=== PATIENT | male | born 1970 | race Caucasian/White ===

== ENCOUNTER 2016-11-14 22:38 | Emergency (ER) | payer MEDICAID ==
[~2016-11-14] VITALS: Ht 182.9 cm; Wt 93.0 kg
[2016-11-14] MEDS ORDERED: ZOLOFT25 MG ORAL (22:48)
[2016-11-14] MEDS ORDERED: RISPERDAL0.25 MG ORAL (22:48)
[2016-11-14] MEDS ORDERED: BACTRIM DS TAB1 EAC1 ORAL (23:51)
--- NOTE | 2016-11-14 23:51 | Emergency Room Report ---
History of Present Illness General Chief Complaint: Skin Rash/Abscess Source: Patient Present Illness HPI Is a 46-year-old male with no significant past medical history. He presents with a bump and redness to the left lower extremity. He said there is a mass there is been there for a long time. Today to get red and painful. Denies any fever chills denies any trauma. Has not take anything for it. Allergies: Coded Allergies: No Known Allergies (Unverified , 11/14/16) Patient History Past Medical History: see triage record, old chart reviewed, psych hx Past Surgical History: other Pertinent Family History: none Social History: Denies: smoking Immunizations: other Reviewed Nursing Documentation: PMH: Agreed, PSxH: Agreed Review of Systems Eye: Denies: blurred vision, eye pain ENT: Denies: ear pain, nose congestion, throat swelling Respiratory: Denies: cough, shortness of breath Cardiovascular: Denies: chest pain, palpitations Gastrointestinal: Denies: abdominal pain, diarrhea, nausea, vomiting Musculoskeletal: Denies: back pain, joint pain Skin: Denies: rash Neurological: Denies: headache, numbness Endocrine: Denies: increased thirst, increased urine Hematologic/Lymphatic: Denies: easy bruising All Other Systems: negative except mentioned in HPI Physical Exam Vital Signs Date Time Temp Pulse Resp B/P Pulse Ox O2 Delivery O2 Flow Rate FiO2 11/14/16 22:44 97.9 63 18 128/81 97 Room Air vitals normal. Sp02 EP Interpretation: reviewed, normal General Appearance: well appearing, no apparent distress, alert Head: normocephalic, atraumatic Eyes: bilateral eye EOMI, bilateral eye PERRL ENT: hearing grossly normal, normal pharynx Neck: full range of motion, supple, no meningismus Respiratory: chest non-tender, lungs clear, normal breath sounds Cardiovascular #1: regular rate, rhythm, no murmur Gastrointestinal: normal bowel sounds, non tender, no mass, no organomegaly, no bruit, non-distended Musculoskeletal: back normal, gait/station normal, normal range of motion, other - left leg distally: 1cm indurated erythematous area. No crepitus Psychiatric: mood/affect normal Skin: warm/dry Procedures Incision and Drainage Incision and Drainage : Consent: Verbal Site: left leg Blade Size: 11 I & D Procedure: betadine prep Wound Location: lower extremity Anesthesia: 1% Lidocaine Volume Anesthetic (ccs): 1 Patient Tolerated: Well Complications: None Progress I made a 1cm incision and expressed out sebaceous cyst. Pt tolerated procedure w /o problem Medical Decision Making Diagnostic Impression: Primary Impression: Infected sebaceous cyst of skin ER Course She presents with a small sebaceous cyst of his lower extremity. Now infected. I was able to evacuate the cyst. We'll put on antibiotics. No evidence of neoplastic process or foreign body. No evidence of necrotizing fasciitis. Last Vital Signs Date Time Temp Pulse Resp B/P Pulse Ox O2 Delivery O2 Flow Rate FiO2 11/14/16 22:44 97.9 63 18 128/81 97 Room Air Status: improved Disposition: HOME, SELF-CARE Condition: Stable Scripts Trimethoprim/Sulfamethoxazole 160/800* (BACTRIM DS TABLET*) 1 Each Tablet 1 TAB ORAL Q12H, #14 TAB 0 Refills Prov: SHILA CATES M.D. 11/14/16 Referrals: [facility],REFERRING (PCP) Additional Instructions: Follow up with your doctor in 7 days. Return if worse. SHILA CATES M.D. Nov 14, 2016 23:51
[2016-11-14 23:59] VITALS: BP 128/81
== END 2016-11-14 23:59 | disposition home or self-care (01) ==
LOC: EMR 23:00
DX: L72.3 Sebaceous cyst (principal)
CPT/HCPCS: 10060

== ENCOUNTER 2017-06-16 16:33 | Emergency (ER) | payer MEDICAID ==
[~2017-06-16] VITALS: Ht 200.7 cm; Wt 93.4 kg
[~2017-06-16 16:33] MED LIST: BACTRIM DS TAB1 EAC1 ORAL; RISPERDAL0.25 MG ORAL; ZOLOFT25 MG ORAL
--- NOTE | 2017-06-16 17:32 | Emergency Room Report ---
History of Present Illness General Chief Complaint: General Complaint Source: Patient Present Illness HPI 47-year-old male presents to the emergency department complaining of localized pain which is one out of 10 in severity to the second toe of the left foot x2 days. Patient states symptoms are progressive patient denies trauma or fall. Patient reports some erythema and tenderness to palpation. Patient states the pain is exacerbated upon weightbearing and walking. Patient denies previous injury the extremities, denies increase in temperature to palpation, past medical history. Denies fevers, chills, N/V. Patient denies bleeding or open wounds. Denies CP, Palpitations, LOC, AMS, dizziness, Changes in Vision, Sensation, paresthesias, or a sudden severe headache. Allergies: Coded Allergies: No Known Allergies (Unverified , 11/14/16) Patient History Past Medical History: see triage record Past Surgical History: none Pertinent Family History: none Immunizations: UTD Reviewed Nursing Documentation: PMH: Agreed, PSxH: Agreed Nursing Documentation-PMH Past Medical History: No History, Except For History Of Psychiatric Problem: Yes Review of Systems All Other Systems: negative except mentioned in HPI Physical Exam Vital Signs Date Time Temp Pulse Resp B/P (MAP) Pulse Ox O2 Delivery O2 Flow Rate FiO2 06/16/17 17:06 76 14 104/68 97 Room Air Sp02 EP Interpretation: reviewed, normal General Appearance: no apparent distress, alert, GCS 15, non-toxic Head: normocephalic, atraumatic Eyes: bilateral eye normal inspection, bilateral eye PERRL ENT: hearing grossly normal, normal voice Neck: full range of motion Respiratory: lungs clear, normal breath sounds, speaking full sentences Cardiovascular #1: regular rate, rhythm, no edema Cardiovascular #2: 2+ dorsalis pedis (L) Musculoskeletal: back normal, gait/station normal, normal range of motion, non- tender Neurologic: alert, oriented x3, responsive, motor strength/tone normal, sensory intact, normal gait, speech normal Psychiatric: judgement/insight normal, memory normal, mood/affect normal Skin: normal color, no rash, warm/dry, well hydrated, other - 0.3cm non- thermal blister to plantar aspect of the 2nd Toe of the Left foot, not suspicious for drug eruption or secondary infection, no purulent d/c, negative niklosky sign, no increased temperature to palpation. Lymphatic: no adenopathy Medical Decision Making PA Attestation Dr. bonilla is my supervising Physician whom patient management has been discussed with. Diagnostic Impression: Primary Impression: Blister (nonthermal), right lesser toe(s), initial encounter ER Course 47-year-old male presents to the emergency department complaining of localized pain which is one out of 10 in severity to the second toe of the left foot x2 days. Patient states symptoms are progressive patient denies trauma or fall. Patient reports some erythema and tenderness to palpation. Patient states the pain is exacerbated upon weightbearing and walking. Patient denies previous injury the extremities, denies increase in temperature to palpation, past medical history. Denies fevers, chills, N/V. Patient denies bleeding or open wounds. Denies CP, Palpitations, LOC, AMS, dizziness, Changes in Vision, Sensation, paresthesias, or a sudden severe headache. Ddx considered but are not limited to cellulitis, scabies, shingles, varicella, dermatitis, urticaria, eczema, tinea, viral exanthem, SJS, friction blister Vital signs: are WNL, pt. is afebrile H&PE are most consistent with 0.3cm non-thermal blister to plantar aspect of the 2nd Toe of the Left foot, not suspicious for drug eruption or secondary infection, no purulent d/c, negative niklosky sign, no increased temperature to palpation. Most likely secondary to friction/ repetitive trauma from walking and wearing tight fitting shoes. ORDERS: none required at this time, the diagnosis is clinical ED INTERVENTIONS: None required at this time. -d/w pt. blister conservative care, d/w pt. proper follow up with PMD. gave ED return precautions. DISCHARGE: At this time pt. is stable for d/c to home. Will provide printed patient care instructions, and any necessary prescriptions. Care plan and follow up instructions have been discussed with the patient prior to discharge. Last Vital Signs Date Time Temp Pulse Resp B/P (MAP) Pulse Ox O2 Delivery O2 Flow Rate FiO2 06/16/17 17:06 76 14 104/68 97 Room Air Disposition: HOME, SELF-CARE Condition: Stable Scripts Acetaminophen* (TYLENOL EXTRA STRENGTH*) 500 Mg Tablet 500 MG ORAL Q6H, #20 TAB 0 Refills Prov: Marcela Adan P.Danica 06/16/17 Patient Instructions: Blisters Additional Instructions: Take medications as directed. Follow up with a Primary Care Provider in 3-5 days, even if your symptoms have resolved. --Please review list of primary care clinics, if you do not already have a primary care provider Return sooner to ED if new symptoms occur, or current symptoms become worse. - Please note that this Emergency Department Report was dictated using [employer] and benefits clerk technology software, occasionally this can lead to erroneous entry secondary to interpretation by the dictation equipment. Marcela Adan Jun 16, 2017 17:32
[2017-06-16] MEDS ORDERED: TYLENOL EXTRA500 MG ORAL (17:33)
[2017-06-16 17:55] VITALS: BP 109/56
== END 2017-06-16 17:45 | disposition home or self-care (01) ==
LOC: EMR 17:40
DX: S90.425A Blister (nonthermal), left lesser toe(s), initial encounter (principal); X58.XXXA Exposure to other specified factors, initial encounter
CPT/HCPCS: 99284

== ENCOUNTER 2017-09-29 14:35 | Emergency (ER) | payer MEDICAID ==
[~2017-09-29] VITALS: Ht 182.9 cm; Wt 93.0 kg
[~2017-09-29 14:35] MED LIST changes: +TYLENOL EXTRA500 MG ORAL
[2017-09-29] MEDS ORDERED: ROBITUSSIN COU237 M1 PO (15:19)
[2017-09-29 15:25] VITALS: BP 110/67
--- NOTE | 2017-10-01 07:31 | Emergency Room Report ---
History of Present Illness General Chief Complaint: Flu Like Symptoms Source: Patient Present Illness HPI Patient presents with complaints of cough ongoing for the past several days Reports of the 7 days Denies any phlegm production patient does not feel short of breath denies any chest pain or shortness of breath Denies any vomiting denies any fevers denies any neck pain or photophobia Given the continued cough patient is concerned and presents for further eval Allergies: Coded Allergies: No Known Allergies (Unverified , 11/14/16) Patient History Past Medical History: see triage record Pertinent Family History: none Reviewed Nursing Documentation: PMH: Agreed, PSxH: Agreed Nursing Documentation-[facility] Past Medical History: No Stated History History Of Psychiatric Problem: Yes - ANXIETY Review of Systems All Other Systems: negative except mentioned in HPI Physical Exam Vital Signs Date Time Temp Pulse Resp B/P (MAP) Pulse Ox O2 Delivery O2 Flow Rate FiO2 09/29/17 14:39 97.9 71 20 110/67 97 Room Air Sp02 EP Interpretation: reviewed, normal General Appearance: well appearing, no apparent distress Head: normocephalic, atraumatic Eyes: bilateral eye PERRL, bilateral eye EOMI ENT: hearing grossly normal, normal pharynx, TMs + canals normal, uvula midline Neck: full range of motion, supple, no meningismus, no bony tend Respiratory: lungs clear, normal breath sounds, no rhonchi, no respiratory distress, no retraction, no accessory muscle use Cardiovascular #1: normal peripheral pulses, regular rate, rhythm, no edema, no gallop, no JVD, no murmur Gastrointestinal: normal bowel sounds, non tender, soft, no mass, no organomegaly, non-distended, no guarding, no hernia, no pulsatile mass, no rebound Musculoskeletal: normal inspection Neurologic: oriented x3, responsive, manager behavior III-XII nml as tested, motor strength/ tone normal, sensory intact Psychiatric: mood/affect normal Skin: normal color, no rash, warm/dry, palpation normal Lymphatic: normal inspection, no adenopathy Medical Decision Making Diagnostic Impression: Primary Impression: bronchitis ER Course Patient has findings in line with what appears to be viral bronchitis Lung sounds are appropriate Patient saturation and clinical exam is also at baseline levels at this time and the patient is stable for initial conservative outpatient trial Last Vital Signs Date Time Temp Pulse Resp B/P (MAP) Pulse Ox O2 Delivery O2 Flow Rate FiO2 09/29/17 15:25 97.9 71 20 110/67 97 Room Air Status: unchanged Disposition: HOME, SELF-CARE Condition: Stable Scripts Guaifenesin/Dextromethorphan (ROBITUSSIN COUGH-CHEST DM LIQ) 237 Ml Liquid 10 ML PO BID for 5 Days, ML Prov: TONY BAHENA D.O. 09/29/17 Referrals: [facility],REFERRING (PCP) Patient Instructions: Acute Bronchitis, [id number] Additional Instructions: Patient is provided with the discharge instructions notified to follow up with primary doctor in the next 2-3 days otherwise return to the er with any worsening symptoms. Please note that this report is being documented using [employer] technology. This can lead to erroneous entry secondary to incorrect interpretation by the dictating instrument. TONY BAHENA D.O. Oct 01, 2017 07:31
== END 2017-09-29 15:28 | disposition home or self-care (01) ==
LOC: EMR 14:55
DX: J40 Bronchitis, not specified as acute or chronic (principal); F41.9 Anxiety disorder, unspecified
CPT/HCPCS: 99283

== ENCOUNTER 2018-01-12 13:31 | Emergency (ER) | payer MEDICAID ==
[~2018-01-12] VITALS: Ht 182.9 cm; Wt 92.5 kg
[~2018-01-12 13:31] MED LIST changes: +ROBITUSSIN COU237 M1 PO
[2018-01-12 13:49] VITALS: BP 116/71
--- NOTE | 2018-01-12 14:06 | Emergency Room Report ---
History of Present Illness General Chief Complaint: Upper Respiratory Illness Source: Patient Present Illness HPI 47-year-old male presents to the emergency department complaining of persistent cough 2 weeks.Denies pain at this time Patient denies mucus production, fevers , chills or other upper respiratory symptoms. Denies sore throat, ear pain, high fevers, lethargy, neck pain/stiffness, irritability, photophobia dehydration, N/V/D. Denies Cp, Palpitations, LOC, AMS, seizures, paresthesias, or changes in Hearing or vision, no Sudden severe LAY. Denies history of asthma , COPD or smoking. Allergies: Coded Allergies: No Known Allergies (Unverified , 11/14/16) Patient History Past Medical History: see triage record Past Surgical History: none Pertinent Family History: none Reviewed Nursing Documentation: PMH: Agreed; PSxH: Agreed Nursing Documentation-PMH Past Medical History: No History, Except For History Of Psychiatric Problem: Yes Review of Systems All Other Systems: negative except mentioned in HPI Physical Exam Vital Signs Date Time Temp Pulse Resp B/P (MAP) Pulse Ox O2 Delivery O2 Flow Rate FiO2 01/12/18 13:36 98.3 81 16 116/71 93 Room Air 98.2 Sp02 EP Interpretation: reviewed, normal General Appearance: no apparent distress, alert, GCS 15, non-toxic Head: normocephalic, atraumatic Eyes: bilateral eye normal inspection, bilateral eye PERRL ENT: hearing grossly normal, normal pharynx, normal voice, TMs + canals normal , uvula midline, moist mucus membranes, other - moderate cerumen in the left ear canal. Neck: full range of motion, no meningismus Respiratory: chest non-tender, lungs clear, normal breath sounds, no respiratory distress, no wheezing, speaking full sentences Cardiovascular #1: regular rate, rhythm Musculoskeletal: back normal, gait/station normal, normal range of motion, non- tender Neurologic: alert, oriented x3, responsive, motor strength/tone normal, sensory intact, normal gait, speech normal, grossly normal Psychiatric: judgement/insight normal Skin: normal color, no rash, warm/dry, well hydrated Lymphatic: no adenopathy Medical Decision Making PA Attestation Dr. Petit is my supervising Physician whom patient management has been discussed with. Diagnostic Impression: Primary Impression: Upper respiratory infection, viral Additional Impressions: Cough Excess ear wax Qualified Codes: H61.22 - Impacted cerumen, left ear ER Course 47-year-old male presents to the emergency department complaining of persistent cough 2 weeks.Denies pain at this time Patient denies mucus production, fevers , chills or other upper respiratory symptoms. Denies sore throat, ear pain, high fevers, lethargy, neck pain/stiffness, irritability, photophobia dehydration, N/V/D. Denies Cp, Palpitations, LOC, AMS, seizures, paresthesias, or changes in Hearing or vision, no Sudden severe LAY. Denies history of asthma , COPD or smoking. Ddx considered but are not limited to: pharyngitis, strep, MANAGEMENT ACCOUNTANT, ludwigs angina, URI Vital signs: are WNL, pt. is afebrile H&PE are most consistent with: bronchitis/ URI most likely viral in etiology. no PE evidence to suggest PNA. -Pt. has moderate cerumen in the left ear canal. ORDERS: None required at this time as the diagnosis is clinical ED INTERVENTIONS: none required at this time. DISCHARGE: At this time pt. is stable for d/c to home. Will provide printed patient care instructions, and any necessary prescriptions. Care plan and follow up instructions have been discussed with the patient prior to discharge. Last Vital Signs Date Time Temp Pulse Resp B/P (MAP) Pulse Ox O2 Delivery O2 Flow Rate FiO2 01/12/18 13:49 98.2 81 16 116/71 93 Room Air 98.2 Disposition: HOME, SELF-CARE Condition: Stable Scripts Carbamide Peroxide (DEBROX) 15 Ml Drops 5 DROP BOTH EARS TWICE A DAY for 4 Days, #15 ML 0 Refills Prov: Marcela Adan P.A. 01/12/18 Codeine/Promethazine Hcl* (PROMETHAZINE-CODEINE SYRUP*) 118 Ml Syrup 5 ML ORAL Q6H PRN for For Cough, #120 ML 0 Refills Prov: Marcela Adan.Jarvis. 01/12/18 Patient Instructions: Upper Respiratory Infection, Adult Additional Instructions: Take medications as directed. Follow up with a Primary Care Provider in 3-5 days, even if your symptoms have resolved. --Please review list of primary care clinics, if you do not already have a primary care provider Return sooner to ED if new symptoms occur, or current symptoms become worse. Do not drink alcohol, drive, or operate heavy machinery while taking cough as this may cause drowsiness. - Please note that this Emergency Department Report was dictated using [employer] power technology software, occasionally this can lead to erroneous entry secondary to interpretation by the dictation equipment. Marcela Adan Jan 12, 2018 14:06
[2018-01-12] MEDS ORDERED: PROMETHAZINE-C118 M1 ORAL (14:07)
[2018-01-12] MEDS ORDERED: DEBROX15 M1 BOTH EARS (14:07)
[2018-01-12 14:21] VITALS: BP 116/71
== END 2018-01-12 14:28 | disposition home or self-care (01) ==
LOC: EMR 14:24
DX: J06.9 Acute upper respiratory infection, unspecified (principal); B34.9 Viral infection, unspecified; H61.22 Impacted cerumen, left ear
CPT/HCPCS: 99284

== ENCOUNTER 2018-09-15 22:43 | Emergency (ER) | payer MEDICAID ==
[~2018-09-15] VITALS: Ht 182.9 cm; Wt 86.2 kg
[~2018-09-15 22:43] MED LIST changes: +DEBROX15 M1 BOTH EARS; +PROMETHAZINE-C118 M1 ORAL
[2018-09-15] MEDS ORDERED: ABILIFY15 MG ORAL (22:58)
[2018-09-15] MEDS ORDERED: Bacitracin Oint UD TOPIC ONE (23:15)
[2018-09-15] MEDS ORDERED: BACITRACIN15 GM TOPIC (23:37)
[2018-09-16 00:46] VITALS: BP 141/80
--- NOTE | 2018-09-16 04:56 | Emergency Room Report ---
History of Present Illness General Chief Complaint: Pain Source: Patient Present Illness HPI 48-year-old male presents ED for evaluation. Patient complaining of pain to his left big toe. States there is a large black discoloration. Started about 2 days ago. Throbbing, 5 out of 10, nonradiating. Denies any injury. Denies any fevers or chills. Denies any discharge. No other aggravating relieving factors. Denies any other associated symptoms Allergies: Coded Allergies: No Known Allergies (Unverified , 11/14/16) Patient History Past Medical History: none Past Surgical History: none Pertinent Family History: none Social History: Denies: smoking, alcohol use, drug use Immunizations: UTD Reviewed Nursing Documentation: PMH: Agreed; PSxH: Agreed Nursing Documentation-PMH Past Medical History: No Stated History Review of Systems All Other Systems: negative except mentioned in HPI Physical Exam Vital Signs Date Time Temp Pulse Resp B/P (MAP) Pulse Ox O2 Delivery O2 Flow Rate FiO2 09/15/18 22:50 98.1 92 18 141/80 99 Room Air Sp02 EP Interpretation: reviewed, normal General Appearance: no apparent distress, alert, GCS 15, non-toxic Head: normocephalic Eyes: bilateral eye normal inspection, bilateral eye PERRL ENT: normal ENT inspection Neck: normal inspection Respiratory: normal inspection Cardiovascular #1: normal inspection Gastrointestinal: normal inspection Rectal: deferred Genitourinary: no CVA tenderness Musculoskeletal: back normal, gait/station normal, normal range of motion, non- tender Neurologic: alert, oriented x3, responsive, motor strength/tone normal, sensory intact, speech normal Psychiatric: judgement/insight normal, memory normal, mood/affect normal, no suicidal/homicidal ideation Skin: other - blister to L big toe. with fluid. no surrounding erythema/ induration. no discharge Lymphatic: normal inspection Medical Decision Making Diagnostic Impression: Primary Impression: Blister of foot Qualified Codes: S90.822A - Blister (nonthermal), left foot, initial encounter ER Course Hospital Course 48-year-old male presents to ED with pain/swelling to L big toe Differential diagnoses include: Cellulitis, dermatitis, insect bite, abscess Clinical course Patient placed on stretcher. After initial history, physical exam reveals a male in no acute distress. On exam there is a blister on the left big toe. Discolored. Tense with fluid. No surrounding erythema or induration. No discharge. Full range of motion to the toe Discussed findings with patient. Instructed not to pop the blister. recommend Localized wound care. Bacitracin and dressing applied here. I'll provide podiatry referrals Diagnosis - blister of foot stable and discharged to home with prescription for bacitracin. Instructed to followup with podiatry. Instructed return to ED if symptoms recur or worsen Last Vital Signs Date Time Temp Pulse Resp B/P (MAP) Pulse Ox O2 Delivery O2 Flow Rate FiO2 09/16/18 00:46 98.1 92 18 141/80 99 Room Air Status: improved Disposition: HOME, SELF-CARE Condition: Stable Scripts Bacitracin (Bacitracin) 28.4 Gm Oint...g. 1 APPLIC TOPIC THREE TIMES A DAY, #28.4 GM Prov: Aristides Sharma MD 09/15/18 Referrals: SILVINO BURROWS M.D., Farshid DPM Patient Instructions: Blisters Aristides Sharma MD Sep 16, 2018 04:56
== END 2018-09-15 23:45 | disposition home or self-care (01) ==
LOC: EMR 23:16
DX: S90.822A Blister (nonthermal), left foot, initial encounter (principal); X58.XXXA Exposure to other specified factors, initial encounter
CPT/HCPCS: 99282

== ENCOUNTER 2019-05-04 22:39 | Emergency (ER) | payer MEDICAID ==
[~2019-05-04] VITALS: Ht 182.9 cm; Wt 99.8 kg
[~2019-05-04 22:39] MED LIST changes: +ABILIFY15 MG ORAL; +BACITRACIN15 GM TOPIC
[2019-05-04 22:59] VITALS: BP 106/69
--- NOTE | 2019-05-04 23:00 | NUR ---
ED Nurse Note: pt walked in for med refill, pt reports he needs depakote 500mg, pt states he has lacey on 05/09 to see his doctor for prescription. will cont monitor.
[2019-05-04] MEDS ORDERED: DEPAKOTE500 MG PO (23:09)
[2019-05-04] MEDS ORDERED: Depakote 500mg tab ORAL ONE (23:15)
--- NOTE | 2019-05-04 23:27 | NUR ---
ER DISCHARGE NOTE: Patient is cleared to be discharged per ERMD, pt is aox4, on room air, with stable vital signs. pt was given dc and prescription instructions, pt was able to verbalize understanding, pt id band removed. pt is able to ambulate with steady gait. pt took all belongings.evert.
[2019-05-04 23:28] VITALS: BP 106/69
--- NOTE | 2019-05-05 00:33 | Emergency Room Report ---
History of Present Illness General Chief Complaint: Medication Refill Source: Patient Present Illness HPI 49-year-old male presents ED for evaluation. Here for medication refill and states that he takes Depakote for schizoaffective disorder and ran out yesterday. Takes 1000 mg twice a day. States he feels fine. Denies SI or HI. Denies hearing voices. States he has a PMD appointment next week. No other aggravating relieving factors. Denies any other associated symptoms Allergies: Coded Allergies: No Known Allergies (Unverified , 11/14/16) Patient History Past Medical History: psych hx Past Surgical History: none Pertinent Family History: none Social History: Denies: smoking, alcohol use, drug use Immunizations: UTD Reviewed Nursing Documentation: PMH: Agreed; PSxH: Agreed Nursing Documentation-PMH Past Medical History: No History, Except For History Of Psychiatric Problem: Yes - schizoaffective disorder Review of Systems All Other Systems: negative except mentioned in HPI Physical Exam Vital Signs Date Time Temp Pulse Resp B/P (MAP) Pulse Ox O2 Delivery O2 Flow Rate FiO2 05/04/19 22:54 99.0 71 18 106/69 (81) 94 Room Air Sp02 EP Interpretation: reviewed, normal General Appearance: no apparent distress, alert, GCS 15, non-toxic Head: normocephalic, atraumatic Eyes: bilateral eye normal inspection, bilateral eye PERRL ENT: hearing grossly normal, normal pharynx, no angioedema, normal voice Neck: full range of motion, supple/symm/no masses Respiratory: chest non-tender, lungs clear, normal breath sounds, speaking full sentences Cardiovascular #1: regular rate, rhythm, no edema Cardiovascular #2: 2+ carotid (R), 2+ carotid (L), 2+ radial (R), 2+ radial (L) , 2+ dorsalis pedis (R), 2+ dorsalis pedis (L) Gastrointestinal: normal bowel sounds, non tender, soft, non-distended, no guarding, no rebound Rectal: deferred Genitourinary: normal inspection, no CVA tenderness Musculoskeletal: back normal, gait/station normal, normal range of motion, non- tender Neurologic: alert, oriented x3, responsive, motor strength/tone normal, sensory intact, speech normal Psychiatric: judgement/insight normal, memory normal, mood/affect normal, no suicidal/homicidal ideation Reflexes: 3+ bicep (R), 3+ bicep (L), 3+ tricep (R), 3+ tricep (L), 3+ knee (R) , 3+ knee (L) Lymphatic: no adenopathy Medical Decision Making Diagnostic Impression: Primary Impression: Encounter for medication refill ER Course 49-year-old male presents to ED refill of his medication. History of schizoaffective- takes depakote hospital course: After initial history and physical, he produces pill bottle which documents depakote being prescribed. I will provide a one-week refill of his medication. Will provide his evening dose here in ED. Safe for discharge for close outpatient follow-up. States he has a PMD Diagnosis-encounter for medication refill Stable and discharged to home with prescription for Depakote. Followup with PMD. Return to ED if symptoms recur or worsen Last Vital Signs Date Time Temp Pulse Resp B/P (MAP) Pulse Ox O2 Delivery O2 Flow Rate FiO2 05/04/19 23:28 99.0 71 18 106/69 94 Room Air Status: improved Disposition: HOME, SELF-CARE Condition: Stable Scripts Divalproex Sodium (Depakote) 500 Mg Tablet.dr 1000 MG PO BID for 7 Days, TAB Prov: Aristides Sharma MD 05/04/19 Referrals: [facility],REFERRING (PCP) Delisa Mojica Comp. [facility] Patient Instructions: Medicine Refill at the Emergency Department Aristides Sharma MD May 05, 2019 00:33
== END 2019-05-04 23:30 | disposition home or self-care (01) ==
LOC: EMR 23:10
DX: F25.9 Schizoaffective disorder, unspecified (principal); Z76.0 Encounter for issue of repeat prescription
CPT/HCPCS: 99282

== ENCOUNTER 2019-06-18 22:14 | Emergency (ER) | payer MEDICAID ==
[~2019-06-18] VITALS: Ht 182.9 cm; Wt 97.5 kg
[~2019-06-18 22:14] MED LIST changes: +DEPAKOTE500 MG PO
[2019-06-18 22:32] VITALS: BP 101/64
[2019-06-18] MEDS ORDERED: DEPAKOTE500 MG PO (22:50)
--- NOTE | 2019-06-18 22:51 | Emergency Room Report ---
History of Present Illness General Chief Complaint: Medication Refill Source: Patient Present Illness HPI Disclaimer: Please note that this report is being documented using [employer] technology. This can lead to erroneous entry secondary to incorrect interpretation by the dictating instrument. HPI: This a 49-year-old male with a history of schizoaffective disorder presenting for medication refill. He states that he ran out of his Depakote which he takes 1000 mg twice a day. He has an appointment to see his PMD in 2 days but ran out of his medications this morning. He is requesting a short refill until he can see his PMD. Denies any other symptoms at this time. Denies SI/HI, hearing voices, headaches, vision changes, recent fevers, chest pain or any other symptoms at this time. PMH: Schizoaffective disorder Allergies: None Social Hx: Denies drug or alcohol use Allergies: Coded Allergies: No Known Allergies (Unverified , 11/14/16) Review of Systems All Other Systems: negative except mentioned in HPI Physical Exam Vital Signs Date Time Temp Pulse Resp B/P (MAP) Pulse Ox O2 Delivery O2 Flow Rate FiO2 06/18/19 22:26 98.2 72 16 101/64 (76) 96 Room Air General: Awake and alert, no acute distress HEENT: NC/AT. EOMI. Resp: Normal work of breathing. Skin: Intact. No abrasions, laceration or rash over the exposed skin MSK: Normal tone and bulk. Moving all extremities. No obvious deformity. Neuro: Awake and alert. Mentating appropriately. Calm and pleasant. Behaving appropriately. Denies SI/HI Medical Decision Making Diagnostic Impression: Primary Impression: Encounter for medication refill ER Course 49-year-old male presents to the emergency department requesting medication refill of his Depakote for which he takes for schizoaffective disorder. He ran out this morning and is otherwise not missed any doses. We will give him a night dose in the emergency department and prescribed in 1 week of medication until he can see his PMD. He is otherwise well-appearing, no acute distress, no other complaints noted. Will discharge home with PMD follow-up Last Vital Signs Date Time Temp Pulse Resp B/P (MAP) Pulse Ox O2 Delivery O2 Flow Rate FiO2 06/18/19 22:32 98.2 72 16 101/64 96 Room Air Disposition: HOME, SELF-CARE Condition: Stable Scripts Divalproex Sodium (Depakote) 500 Mg Tablet. 1000 MG PO BID for 7 Days, #28 TAB Prov: Lavell Vargas MD 06/18/19 Referrals: [facility],REFERRING (PCP) Additional Instructions: Please follow-up with your primary care doctor at your scheduled visit later this week to discuss your medications. You are given 1 week of Depakote until you can see your primary doctor for further medication refills. Return to the emergency room with any other new symptoms Lavell Vargas MD Jun 18, 2019 22:51
[2019-06-18 22:55] VITALS: BP 108/67
[2019-06-18] MEDS ORDERED: Depakote 500mg tab ORAL ONE (23:00)
== END 2019-06-18 22:55 | disposition home or self-care (01) ==
LOC: EMR 22:43
DX: F25.9 Schizoaffective disorder, unspecified (principal); Z76.0 Encounter for issue of repeat prescription
CPT/HCPCS: 99282